=== PATIENT | female | born 1995 | race Caucasian/White ===

== ENCOUNTER 2021-03-24 13:00 | Outpatient (CLI) | payer OTHER ==
[~2021-03-24 13:00] MED LIST: COLACE 100MG C100 MG PO; IBU600 MG PO; MACROBID 100 M100 M1 PO; NORCO 5-325 TA1 EACH PO
== END 2021-03-24 17:45 | disposition home or self-care (01) ==
LOC: GENOP 13:00
DX: O47.1 False labor at or after 37 completed weeks of gestation (principal); O98.513 Other viral diseases complicating pregnancy, third trimester; U07.1 COVID-19; Z3A.38 38 weeks gestation of pregnancy
CPT/HCPCS: 81001; G0463; U0002

== ENCOUNTER 2021-03-29 16:21 | Inpatient (IN) | payer OTHER ==
[~2021-03-29] VITALS: Ht 160 cm; Wt 98.4 kg
[2021-03-29] MEDS ORDERED: UNISOM25 MG PO (17:03)
[2021-03-29] MEDS ORDERED: VITAMIN B6100 MG/2.5 PO (17:03)
[2021-03-29] MEDS ORDERED: PEPCID40 MG PO (17:04)
[2021-03-29 17:25] LABS: HEMOGLOBIN 10.3 gm/dl (12.3-15.3); RED BLOOD COUNT 4.02 M/UL (4.00-5.10); WHITE BLOOD COUNT 5.4 K/UL (4.5-11.0)
[2021-03-30] MEDS ORDERED: DOCUSATE SODIU100 MG PO (11:29)
[2021-03-30] MEDS ORDERED: IBUPROFEN600 MG PO (11:29)
[2021-03-31 06:44] LABS: HEMOGLOBIN 8.6 gm/dl (12.3-15.3)
[2021-03-31] MEDS ORDERED: HYDROCODON-ACE1 EAC4 PO (10:55)
== END 2021-03-31 14:28 | disposition home or self-care (01) | DRG 805 ==
LOC: GENOP 16:21 → OB 16:30
PROVIDERS: Obstetrics & Gynecology; ADMIT Obstetrics & Gynecology
PROC: 10E0XZZ Delivery of Products of Conception, External Approach (ICD-10-PCS; principal; 2021-03-30)
PROC: 10907ZC Drainage of Amniotic Fluid, Therapeutic from Products of Conception, Via Natural or Artificial Opening (ICD-10-PCS; 2021-03-30)
PROC: 3E033VJ Introduction of Other Hormone into Peripheral Vein, Percutaneous Approach (ICD-10-PCS; 2021-03-30)
PROC: 0HQ9XZZ Repair Perineum Skin, External Approach (ICD-10-PCS; 2021-03-30)
PROC: 10H07YZ Insertion of Other Device into Products of Conception, Via Natural or Artificial Opening (ICD-10-PCS; 2021-03-30)
PROC: 4A1H7CZ Monitoring of Products of Conception, Cardiac Rate, Via Natural or Artificial Opening (ICD-10-PCS; 2021-03-30)
PROC: 10H073Z Insertion of Monitoring Electrode into Products of Conception, Via Natural or Artificial Opening (ICD-10-PCS; 2021-03-30)
PROC: 8E0ZXY6 Isolation (ICD-10-PCS; 2021-03-30)
PROC: 3E0234Z Introduction of Serum, Toxoid and Vaccine into Muscle, Percutaneous Approach (ICD-10-PCS; 2021-03-30)
DX: O99.02 Anemia complicating childbirth (principal); U07.1 COVID-19; Z37.0 Single live birth; O98.52 Other viral diseases complicating childbirth; D62 Acute posthemorrhagic anemia; O99.334 Smoking (tobacco) complicating childbirth; Z82.49 Family history of ischemic heart disease and other diseases of the circulatory system; Z83.3 Family history of diabetes mellitus; Z3A.39 39 weeks gestation of pregnancy; O70.0 First degree perineal laceration during delivery; F17.200 Nicotine dependence, unspecified, uncomplicated; Z23 Encounter for immunization
CPT/HCPCS: 36415; 81001; 82800; 85014; 85018; 85025; 85461; 86850; 86900; 86901; 90715; J0696; J2405; J2590; J2790; J7120; J7121